=== PATIENT | female | born 1930 | race Caucasian/White ===

== ENCOUNTER 2016-10-27 14:39 | Emergency (ER) | payer OTHER ==
[~2016-10-27] VITALS: Ht 162.6 cm; Wt 80.0 kg
[2016-10-27 14:42] VITALS: BP 221/99; PULSE 79; RESP 14; TEMP 97.7; O2SAT 97
[2016-10-27] MEDS ORDERED: MORPHINE SULFATE 4 MG/ML INJ IV PUSH ONE (15:15)
[2016-10-27] MEDS ORDERED: KETOROLAC TROMETHAMINE 60 MG/2 ML (IM) VIAL IM ONE (15:15)
--- NOTE | 2016-10-27 15:18 | PD ---
HPI Chief Complaint: Pain: Acute or Chronic Time Seen by Provider: 15:13 Travel History International Travel<30 days: No Contact w/Intl Traveler<30days: No Traveled to known affect area: No History of Present Illness HPI 85 year-old woman presents emergency department complaining of worsening pain shoulders arms and legs. She is a history of rheumatoid arthritis. She is to get injections every 2 weeks but now is only able to get him every month or so on wondering at a time. She since that time said worsening pain. She is prescription for Lortab 5 mg tablets but does not like taking because they make her feel woozy. She has not taken any today. She has a history of high blood pressure, took her medicines this morning. Is here hoping that we can do her joint injections. History Past Medical History Narrative Medical Rheumatoid arthritis Hypertension Social History Tobacco Use: No Allergies-Medications (Allergen,Severity, Reaction): Coded Allergies: No Known Allergies (Unverified , 10/27/16) Review of Systems Except as stated in HPI: all other systems reviewed are Neg Physical Exam Narrative GENERAL: 85 year-old woman, uncomfortable and nontoxic. SKIN: Warm and dry. CARDIOVASCULAR: Regular rate and rhythm. No murmur appreciated. RESPIRATORY: No accessory muscle use. Clear to auscultation. Breath sounds equal bilaterally. GASTROINTESTINAL: Abdomen soft, non-tender, nondistended. Hepatic and splenic margins not palpable. MUSCULOSKELETAL: No obvious deformities. No clubbing. No cyanosis. No edema. NEUROLOGICAL: Awake and alert. No obvious cranial nerve deficits. Motor grossly within normal limits. Normal speech. PSYCHIATRIC: Appropriate mood and affect; insight and judgment normal. Data Data Last Documented VS Vital Signs Date Time Temp Pulse Resp B/P Pulse Ox O2 Delivery O2 Flow Rate FiO2 10/27/16 15:10 16 10/27/16 14:42 97.7 79 221/99 97 Room Air Orders Morphine Inj (Morphine Inj) (10/27/16 15:15) Ketorolac Inj (Toradol Inj) (10/27/16 15:15) MDM Medical Decision Making Medical Screen Exam Complete: Yes Emergency Medical Condition: Yes Differential Diagnosis Chronic pain Narrative Course Medical decision making 85 year-old woman chronic pain, uncontrolled at home, not really taking her Lortab. Like the side effects. Encourage her to continue Aleve twice a day which she is taking, Tylenol or Lortab as needed for breakthrough pain. Diagnosis Primary Impression: Pain Additional Instructions: Take Aleve twice a day. Take acetaminophen or your hydrocodone 4 times daily for breakthrough pain. Follow-up with your primary doctor in the next 2-4 days. Med/Other Pt SpecificInfo: No Change to Meds Disposition: 01 DISCHARGE HOME Condition: Stable Ambrocio Samayoa MD Oct 27, 2016 15:18
[2016-10-27 15:41] VITALS: BP 199/86; PULSE 72; RESP 20; O2SAT 98
[2016-10-27 16:00] VITALS: RESP 16
== END 2016-10-27 16:01 | disposition home or self-care (01) ==
LOC: NETRI 14:39
DX: G89.29 Other chronic pain (principal); M79.602 Pain in left arm; M79.601 Pain in right arm; M79.605 Pain in left leg; M79.604 Pain in right leg; M06.9 Rheumatoid arthritis, unspecified; I10 Essential (primary) hypertension
CPT/HCPCS: 96372; 96374; 99283; J1885; J2270

== ENCOUNTER 2017-10-14 13:56 | Emergency (ER) | payer OTHER ==
[~2017-10-14] VITALS: Ht 157.5 cm; Wt 74.5 kg
[2017-10-14 13:57] VITALS: BP 214/91; PULSE 77; RESP 18; TEMP 98.9; O2SAT 97
--- NOTE | 2017-10-14 15:37 | PD ---
HPI Chief Complaint: Musculoskeletal Complaint Time Seen by Provider: 15:27 Travel History International Travel<30 days: No Contact w/Intl Traveler<30days: No Traveled to known affect area: No History of Present Illness HPI 86-year-old female presents to emergency department requesting steroid injections into her right shoulder and right knee for continued pain secondary to rheumatoid arthritis. She had an injection last in her right shoulder on August [address] Menendez. She has not had an injection to her right knee for a while. She says she hasn't been able to follow-up with pain management, Dr. Menendez, because of something is going on in the office. Denies fever, vomiting. Denies redness, swelling to the joints. Denies paresthesias, loss of sensation to the affected extremity. Reports decreased range of motion to the right shoulder secondary to the RA and is not a new change. Has been taking Tylenol with codeine for symptom management, but states she doesn't like taking it makes her feel drowsy. Symptoms are mild in severity. No known allergies. Dr. Gomez primary care provider. Has no other medical complaints. No other modifying factors or associated signs and symptoms. [facility] Social History Tobacco Use: No Allergies-Medications (Allergen,Severity, Reaction): Coded Allergies: No Known Allergies (Unverified , 10/27/16) Reported Meds & Prescriptions Reported Meds & Active Scripts Active Medrol Dosepak (Methylprednisolone) 4 Mg Dspk 4 Mg PO DIRECTED Per Pharmacist direction Review of Systems Except as stated in HPI: all other systems reviewed are Neg Physical Exam Narrative GENERAL: Well-nourished, well-developed elderly, female patient, in no acute distress SKIN: Warm and dry. HEAD: Atraumatic. Normocephalic. EYES: Pupils equal and round. No scleral icterus. No injection or drainage. ENT: Mucosa pink and moist. Airway patent. NECK: Trachea midline. CARDIOVASCULAR: Regular rate. RESPIRATORY: No accessory muscle use. GASTROINTESTINAL: Obese. MUSCULOSKELETAL: Right knee without erythema, edema, ecchymosis; with full range of motion and without tenderness on palpation. Right lower extremities supple and non-tense with 2+ pedal pulse and sensory intact. Bilateral lower extremity edema noted. Right shoulder without erythema, edema, ecchymosis; with limited abduction. Right upper extremities supple and non-tense with 2+ radial pulse and sensory intact and without erythema or edema. No obvious deformities. No clubbing. No cyanosis. No edema. NEUROLOGICAL: Awake and alert. Oriented 3. No obvious cranial nerve deficits. Motor grossly within normal limits. Normal speech. PSYCHIATRIC: Appropriate mood and affect; insight and judgment normal. Data Data Last Documented VS Vital Signs Date Time Temp Pulse Resp B/P (MAP) Pulse Ox O2 Delivery O2 Flow Rate FiO2 10/14/17 13:57 98.9 77 18 214/91 (132) 97 Room Air Orders Orders Ketorolac Inj (Toradol Inj) (10/14/17 15:45) [facility] Medical Decision Making Medical Screen Exam Complete: Yes Emergency Medical Condition: Yes Medical Record Reviewed: Yes Differential Diagnosis Knee pain, shoulder pain, RA, medical clearance Narrative Course 86-year-old female with history of rheumatoid arthritis requesting steroid injections to the right shoulder and right knee. She has pain management, Dr. Menendez. Primary care provider is Dr. Lynch. There are no signs of septic joints. Patient is afebrile nontoxic appearing. Denies fever, vomiting. Toradol administered in the ER. Medrol Dosepak prescribed for home. Instructed patient to follow with pain management. Instructed patient to follow up with primary care provider. Patient verbalizes understanding and agreement with treatment plan. Patient is medically cleared and stable for discharge. Discussed reasons to return to the emergency department. Patient agrees with treatment plan. The patients vital signs are stable and the patient is stable for outpatient follow-up and treatment. Patient discharged home, stable and in no acute distress. Diagnosis Primary Impression: Right knee pain Qualified Codes: M25.561 - Pain in right knee; G89.29 - Other chronic pain Additional Impression: Right shoulder pain Qualified Codes: M25.511 - Pain in right shoulder; G89.29 - Other chronic pain Referrals: Pain Management Primary Care Physician Patient Instructions: General Instructions, Rheumatoid Arthritis (ED) Additional Instructions: Pain medication as prescribed and as needed for pain Medrol Dosepak as prescribed Follow-up with pain management Follow-up with primary care provider Return to emergency department immediately if worsening of symptoms Med/Other Pt SpecificInfo: Prescription(s) given Scripts Methylprednisolone Dosepak (Medrol Dosepak) 4 Mg Dspk 4 MG PO DIRECTED, #1 DSPK 0 Refills Per Pharmacist direction Prov: Jeanie Cleveland 10/14/17 Disposition: 01 DISCHARGE HOME Condition: Stable Jeanie Cleveland Oct 14, 2017 15:37
[2017-10-14] MEDS ORDERED: MEDR4PAK PO (15:40)
[2017-10-14] MEDS ORDERED: KETOROLAC TROMETHAMINE 60 MG/2 ML (IM) VIAL IM ONE (15:45)
[2017-10-14 16:52] VITALS: BP 172/77
== END 2017-10-14 17:07 | disposition home or self-care (01) ==
LOC: NEPD 13:56
DX: M25.561 Pain in right knee (principal); M25.511 Pain in right shoulder; M06.9 Rheumatoid arthritis, unspecified
CPT/HCPCS: 96372; 99284; J1885

== ENCOUNTER 2017-12-03 14:55 | Emergency (ER) | payer OTHER ==
[~2017-12-03] VITALS: Ht 157.5 cm; Wt 72.0 kg
[~2017-12-03 14:55] MED LIST: MEDR4PAK PO
[2017-12-03 15:37] VITALS: BP 171/80; PULSE 77; RESP 16; TEMP 98.6; O2SAT 97
[2017-12-03] MEDS ORDERED: ACET300T2 PO (16:31)
[2017-12-03] MEDS ORDERED: ASPI81CH6 CHEW (16:31)
[2017-12-03] MEDS ORDERED: CENTCHW4 CHEW (16:31)
[2017-12-03] MEDS ORDERED: ATOR10TA15 PO (16:31)
[2017-12-03] MEDS ORDERED: ATEN50TA PO (16:31)
[2017-12-03] MEDS ORDERED: NAPR1TAB98 PO (16:31)
--- NOTE | 2017-12-03 16:45 | PD ---
HPI Chief Complaint: Fall Time Seen by Provider: 16:22 Travel History International Travel<30 days: No Contact w/Intl Traveler<30days: No Traveled to known affect area: No History of Present Illness HPI This is a 86-year-old female here with right arm and right knee pain after a mechanical trip and fall 2 weeks ago. She reports the pain has been improving since the injury but her close friend encouraged her to come seek evaluation today for possible fracture. She denies paresthesia or weakness of the extremities. She denies fever or chills. Denies head injury or loss of consciousness. The pain is localized to the right arm and right knee. Pain is worse with palpation of the extremities and range of motion. Slightly relieved with rest. She also reports a history of rheumatoid arthritis and has chronic pain in these joints. She is followed by a management and currently on Tylenol with Codeine. PFSH Past Medical History Hx Anticoagulant Therapy: Yes (asa 81mg) Arthritis: Yes (RA) Cardiovascular Problems: Yes (htn on meds) High Cholesterol: Yes Diminished Hearing: Yes Hypertension: Yes Influenza Vaccination: Yes ?: Not Social History Alcohol Use: Yes Tobacco Use: No Substance Use: No Allergies-Medications (Allergen,Severity, Reaction): Coded Allergies: No Known Allergies (Unverified Adverse Reaction, Unknown, 12/03/17) Reported Meds & Prescriptions Reported Meds & Active Scripts Active Reported Acetaminophen-Codeine 300-30 mg Tab 1 Tab PO DAILY PRN Aleve PM (Naproxen Sodium-Diphenhydramine) 220-25 Mg Tab 200 Tab PO HS PRN Atorvastatin (Atorvastatin Calcium) 10 Mg Tab 0 PO HS Atenolol 50 Mg Tab 0 PO DAILY Aspirin Low Dose (Aspirin) 81 Mg Chew 81 Mg CHEW DAILY Centrum (Multiple Vitamins W/ Minerals) 1 Chew 1 Tab CHEW DAILY Review of Systems Except as stated in HPI: all other systems reviewed are Neg General / Constitutional: No: Fever Physical Exam Narrative GENERAL: Alert and well-appearing 86-year-old female SKIN: Warm and dry. 2 areas of healing ecchymosis to the right anterior knee. HEAD: Normocephalic. Atraumatic EYES: No injection or drainage. NECK: Supple. No midline spine tenderness. CARDIOVASCULAR: Regular rate and rhythm without murmurs, gallops, or rubs. RESPIRATORY: Breath sounds equal bilaterally. No accessory muscle use. GASTROINTESTINAL: Abdomen soft, non-tender, nondistended. MUSCULOSKELETAL: No cyanosis. Mild Bilateral nonpitting edema and faint erythema to lower extremities patient reports this is chronic. Right knee: Mild swelling. 2 areas of healing ecchymosis to the medial aspect. The joint is stable. She is able to flex and extend the knee. 2+ distal pulses. Brisk cap refill. Right upper extremity: No deformity noted. Tenderness over the proximal humerus. Limited abduction and external rotation of the shoulder. 2+ distal pulses. Normal sensation. Brisk cap refill. BACK: Nontender without obvious deformity. No CVA tenderness. Data Data Last Documented VS Vital Signs Date Time Temp Pulse Resp B/P (MAP) Pulse Ox O2 Delivery O2 Flow Rate FiO2 12/03/17 17:50 76 18 199/73 (115) 99 Room Air 12/03/17 15:37 98.6 Orders Orders Humerus (Min 2vws) (12/03/17 ) Knee, Complete (4vws) (12/03/17 ) [facility] Medical Decision Making Medical Screen Exam Complete: Yes Emergency Medical Condition: Yes Differential Diagnosis Humerus fracture, knee fracture, contusion, dislocation Narrative Course This is a in 86-year-old female here with right humerus and right knee pain after fall 2 weeks ago. Extremities are neurovascularly intact. Right humerus: Negative for fracture Right knee: Negative for fracture Diagnosis Primary Impression: Right shoulder pain Qualified Codes: M25.511 - Pain in right shoulder Additional Impression: Right knee pain Qualified Codes: M25.561 - Pain in right knee Referrals: Primary Care Physician Additional Instructions: Take Tylenol 6 hours as needed for pain. Take Ultram as needed for severe pain. Follow-up with her primary doctor Scripts Tramadol (Ultram) 50 Mg Tab 50 MG PO Q6H Y for PAIN, #14 TAB 0 Refills Prov: Chelsea Linares 12/03/17 Disposition: 01 DISCHARGE HOME Condition: Stable Chelsea Linares Dec 03, 2017 16:45
[2017-12-03 17:50] VITALS: BP 199/73; PULSE 76; RESP 18; O2SAT 99
--- NOTE | 2017-12-03 18:01 | RADRPT ---
EXAM DATE/TIME: 12/03/2017 17:16 [facility] COMPARISON: No previous studies available for comparison. INDICATIONS : Pain post fall. MEDICAL HISTORY : RA. SURGICAL HISTORY : None. ENCOUNTER: Initial ACUITY: 2 weeks PAIN SCORE: 10/10 LOCATION: Right Humerus. FINDINGS: Two view examination of the right humerus demonstrates no evidence of fracture or gross dislocation. Advanced degenerative changes of the glenohumeral joint. Bony mineralization is normal. The soft ti ssue structures are intact. Visualized portions of the right lung are clear. CONCLUSION: 1. No acute fracture or gross dislocation. 2. 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 1. Awais Mohamud MD on December 03, 2017 at 17:59 Board Certified Radiologist. This report was verified electronically.
--- NOTE | 2017-12-03 18:02 | RADRPT ---
EXAM DATE/TIME: 12/03/2017 17:16 [facility] COMPARISON: No previous studies available for comparison. INDICATIONS : Pain post fall. MEDICAL HISTORY : RA. SURGICAL HISTORY : None. ENCOUNTER: Initial ACUITY: 2 weeks PAIN SCORE: 10/10 LOCATION: Right Knee. FINDINGS: Four view examination of the right knee demonstrates no evidence of fracture or dislocation. Bony mi neralization is normal. Advanced degenerative changes of the lateral and patellofemoral compartments. The suprapatellar soft tissues have a normal configuration. CONCLUSION: 1. No acute fracture or dislocation. 2. 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 Awais Mohamud MD on December 03, 2017 at 18:00 Board Certified Radiologist. This report was verified electronically.
[2017-12-03] MEDS ORDERED: TRAM50 PO (18:44)
== END 2017-12-03 18:52 | disposition home or self-care (01) ==
LOC: PHED 14:55 → PHEFT 18:52
DX: M25.511 Pain in right shoulder (principal); M25.561 Pain in right knee; M06.9 Rheumatoid arthritis, unspecified; G89.29 Other chronic pain; W01.0XXA Fall on same level from slipping, tripping and stumbling without subsequent striking against object, initial encounter
CPT/HCPCS: 73060; 73564; 99284